=== PATIENT | male | born 1975 | race African-American/Black ===

== ENCOUNTER 2019-08-01 01:16 | Inpatient (IN) | payer MEDICAID, OTHER ==
[~2019-08-01] VITALS: Ht 177.8 cm; Wt 72.3 kg
[2019-08-01] MEDS ORDERED: LOSA25TA41 PO (01:33)
[2019-08-01] MEDS ORDERED: METF-960 PO (01:33)
[2019-08-01] MEDS ORDERED: AMLO2.5T4 PO (01:33)
[2019-08-01] MEDS ORDERED: SODIUM CHLORIDE 0.9% 1,000 ML IV ONE (01:45)
[2019-08-01 01:48] LABS: GLUCOSE,POINT OF CARE 421 MG/DL (70-110)
[2019-08-01 02:00] LABS: BASOPHILS % (AUTO) 0.9 % (0.0-2.0); EOSINOPHILS % (AUTO) 0.2 % (1.0-6.0); HEMATOCRIT 45.8 % (41-53); HEMOGLOBIN 15.5 g/dL (13.5-17.5); LYMPHOCYTES # (AUTO) 2.3 K/uL (1.0-4.8); MEAN CORPUSCULAR HEMOGLOBIN 31.3 pg (26.0-34.0); MEAN CORPUSCULAR HGB CONC 33.7 G/dL (31.0-37.0); MEAN CORPUSCULAR VOLUME 93 fL (80-100); MONOCYTES # (AUTO) 0.4 K/uL (0.1-1.0); MONOCYTES % (AUTO) 5.7 % (2.0-9.0); NEUTROPHILS # (AUTO) 4.6 K/uL (1.8-7.7); NEUTROPHILS % (AUTO) 62.2 % (40.0-70.0); PLATELET COUNT (AUTO) 217 K/uL (150-450); RED BLOOD CELL COUNT(AUTO) 4.94 MIL/uL (4.50-5.90); RED CELL DISTRIBUTION WIDTH 12.6 % (11.5-14.5)
[2019-08-01 02:13] LABS: ANION GAP 10 mmol/L (8-16); CARBON DIOXIDE 26 mmol/L (22-29); CHLORIDE 100 mmol/L (98-107); CREATININE 0.97 mg/dL (0.60-1.30); GLOMERULAR FILTR. RATE CALC > 60 mL/min (>60); GLUCOSE,RANDOM 361 mg/dL (70-110); POTASSIUM 3.7 mmol/L (3.5-5.1); SODIUM SERUM 136 mmol/L (136-145); UREA NITROGEN, BLOOD 13 mg/dL (7-18)
[2019-08-01] MEDS ORDERED: HALOPERIDOL 5 MG TABLET PO PRN (02:15)
[2019-08-01] MEDS ORDERED: ZOLPIDEM TARTRATE 10 MG TABLET PO PRN (02:15)
[2019-08-01] MEDS ORDERED: LORazepam 2 MG TABLET PO PRN (02:15)
[2019-08-01 02:19] LABS: ALANINE AMINOTRANSFERASE 17 U/L (12-78); ALBUMIN 3.8 g/dL (3.4-5.0); ALKALINE PHOSPHATASE 79 U/L (46-116); ASPARTATE AMINOTRANSFERASE 12 U/L (15-37); BILIRUBIN,TOTAL 0.4 mg/dL (0.1-1.0); TOTAL PROTEIN, SERUM 8.3 g/dL (6.4-8.2)
[2019-08-01 03:24] LABS: GLUCOSE,POINT OF CARE 250 MG/DL (70-110)
[2019-08-01 06:09] VITALS: BP 149/94
[2019-08-01] MEDS ORDERED: DEXTROSE 50%-WATER 25 GM/50 ML SYRINGE IVP PRN (07:00)
[2019-08-01] MEDS ORDERED: INFLUENZA VIRUS VACCINE QVS 2019-20 (3YR+)/PF 60 MCG/0.5 ML SYRINGE IM ONE (07:45)
[2019-08-01] MEDS ORDERED: PNEUMOCOCCAL VACCINE POLYVALENT 0.5 ML VIAL [PPSV23] IM ONE (07:45)
[2019-08-01 08:33] VITALS: BP 151/83
[2019-08-01] MEDS: AmLODIPine BESYLATE 2.5 MG TABLET PO SCH (08:53)
[2019-08-01] MEDS: MetFORMIN HCL 500 MG TABLET PO SCH ×2 (08:53→17:21)
[2019-08-01 11:07] LABS: GLUCOMETER DEV NAME(LOC) 3EX.; GLUCOSE,POINT OF CARE 138 MG/DL (70-110)
[2019-08-01] MEDS: LOSARTAN POTASSIUM 25 MG TABLET PO SCH ×2 (11:53→17:21)
[2019-08-01] MEDS: INSULIN LISPRO 100 UNITS/ML SQ PRN ×2 (13:13→17:26)
[2019-08-01 16:54] LABS: GLUCOMETER DEV NAME(LOC) 3EX.; GLUCOSE,POINT OF CARE 148 MG/DL (70-110)
[2019-08-01 19:11] VITALS: BP 134/90
[2019-08-01 21:30] LABS: GLUCOMETER DEV NAME(LOC) 3EX.; GLUCOSE,POINT OF CARE 92 MG/DL (70-110)
[2019-08-02 06:12] LABS: GLUCOMETER DEV NAME(LOC) 3EX.; GLUCOSE,POINT OF CARE 141 MG/DL (70-110)
[2019-08-02] MEDS: MetFORMIN HCL 500 MG TABLET PO SCH (06:50)
[2019-08-02 07:04] LABS: CHOL/HDL RATIO 4.4 (4.2-7.3)
[2019-08-02] MEDS: LOSARTAN POTASSIUM 25 MG TABLET PO SCH (08:37)
[2019-08-02] MEDS: AmLODIPine BESYLATE 2.5 MG TABLET PO SCH (08:37)
[2019-08-02 09:15] VITALS: BP 145/108
[2019-08-02 11:11] LABS: GLUCOMETER DEV NAME(LOC) 3EX.; GLUCOSE,POINT OF CARE 258 MG/DL (70-110)
[2019-08-02] MEDS: INSULIN LISPRO 100 UNITS/ML SQ PRN (13:04)
== END 2019-08-02 15:45 | disposition home or self-care (01) | DRG 754 ==
LOC: EMS 01:17 → 3EI 04:14
PROVIDERS: ADMIT Psychiatry & Neurology Psychiatry; ATTEND Psychiatry & Neurology Psychiatry
DX: F32.9 Major depressive disorder, single episode, unspecified (principal); E11.9 Type 2 diabetes mellitus without complications; R45.851 Suicidal ideations; I10 Essential (primary) hypertension; F10.10 Alcohol abuse, uncomplicated; F12.90 Cannabis use, unspecified, uncomplicated; Y90.6 Blood alcohol level of 120-199 mg/100 ml; Z59.0 Homelessness; Z87.891 Personal history of nicotine dependence
CPT/HCPCS: G0480; J7030